=== PATIENT | male | born 1965 | race Caucasian/White ===

== ENCOUNTER 2021-03-29 07:41 | Outpatient (REF) | payer OTHER, SELFPAY ==
[2021-03-29 08:24] LABS: Hematocrit 41.8 % (42-52); Hemoglobin 13.7 g/dl (14.0-18.0); Mean Corpuscular HGB Conc 32.8 g/dl (31.0-36.0); Mean Corpuscular Hemoglobin 28.6 pg (27.0-33.0); Mean Corpuscular Volume 87.3 fL (80-98); Mean Platelet Volume 8.9 fL (9.4-12.4); Platelet Count 214 X10*3/uL (160-400); Red Blood Count 4.79 X10*6/uL (4.60-5.80); Red Cell Distribution Width 12.2 % (11.0-16.0); White Blood Count 6.1 X10*3/uL (4.8-10.8)
[2021-03-29 08:28] LABS: Glucose Urine UA NEG (NEG); Leukocyte Esterase Urine NEG (NEG); Nitrite Urine NEG (NEG); PH 5.5 (5.0-8.0); Specific Gravity - Urine 1.025 (1.005-1.025); Urine Blood NEG (NEG); Urine Ketones NEG (NEG); Urine Protein NEG (NEG-TRACE)
[2021-03-29 08:35] LABS: Appearance Urine CLEAR; Color Urine YELLOW
[2021-03-29 09:03] LABS: Alanine Aminotransferase 44 U/L (0-40); Albumin Level 4.2 g/dL (3.5-5.0); Alkaline Phosphatase 82 U/L (39-117); Anion Gap 12 (12-20); Aspartate Amino Transferase 25 U/L (5-37); Bilirubin Direct 0.3 mg/dL (0.0-0.5); Bilirubin Total 0.8 mg/dL (0.0-1.0); Blood Urea Nitrogen 17 mg/dL (9-16); Calcium 9.1 mg/dL (8.4-10.2); Carbon Dioxide 24 mmol/L (22-29); Chloride 108 mmol/L (96-108); Cholesterol 157 mg/dL; Estimated Glomerular Filt Rate > 60; Glucose Random 118 mg/dL (60-115); HDL Cholesterol 52 mg/dL; LDL Cholesterol Calculated 88 mg/dl; Potassium 4.2 mmol/L (3.3-5.1); Sodium 140 mmol/L (135-145); Total Protein 6.3 g/dL (6.5-8.0); Triglycerides 85 mg/dL
[2021-03-29 09:14] LABS: Thyroid Stimulating Hormone 0.75 uIU/mL (0.32-4.0)
[2021-04-01 18:16] LABS: Vitamin D 25-OH, D2 <4 ng/mL; Vitamin D 25-OH, D3 30 ng/mL; Vitamin D 25-OH, Total 30 ng/mL (30-100)
== END 2021-03-29 07:42 | disposition home or self-care (01) ==
LOC: HO.LAB 07:41
PROVIDERS: PCP Internal Medicine; Visit Provider Internal Medicine
DX: E78.00 Pure hypercholesterolemia, unspecified (principal)
CPT/HCPCS: 36415; 80048; 80061; 80076; 81003; 82306; 84443; 85027

== ENCOUNTER → 2021-04-18 08:54 | Outpatient (BNVA) | payer OTHER, SELFPAY | PROVIDERS: PCP Internal Medicine; Visit Provider Nurse Practitioner Family ==

== ENCOUNTER 2021-05-01 09:09 | Outpatient (REF) | payer OTHER, SELFPAY ==
--- NOTE | ~2021-05-01 | XR_ITS ---
EXAMINATION: XR WRIST, RIGHT CLINICAL INFORMATION: Right wrist pain. COMPARISON: 12/09/2019 TECHNIQUE: PA, lateral, and oblique views of the right wrist. FINDINGS: There is no evidence of acute fracture or dislocation of the right wrist. Soft tissue swelling is seen about the lateral aspect of the distal radius. Stable degenerative change is seen with spurring involving the 1st carpometacarpal joint. XR/XR wrist RT min 3V IMPRESSION: Stable degenerative change 1st carpometacarpal joint. Soft tissue swelling without evidence of bony abnormality distal right radius.
== END 2021-05-01 09:10 | disposition home or self-care (01) ==
LOC: HO.HOSX 09:09
PROVIDERS: Visit Provider Orthopaedic Surgery
DX: M65.4 Radial styloid tenosynovitis [de Quervain] (principal); M18.11 Unilateral primary osteoarthritis of first carpometacarpal joint, right hand; M65.351 Trigger finger, right little finger
CPT/HCPCS: 20550; 73110; J1100

== ENCOUNTER 2021-05-23 09:27 | Day surgery (SDC) | payer OTHER, SELFPAY ==
--- NOTE | 2021-05-22 10:22 | HO.ANESPROP2 ---
Documented by User: Aysha Suazo NP 05/22/21 10:23 HPI - Anesthesia Eval Consult details Narrative: 56yo M for Colonoscopy PMFSH Active Problems Active Problems: All Active Problems (Updated 05/19/21 @ 14:14 by Natalie Donohue, RN) Screening for colon cancer (Acute) Carpal tunnel syndrome (Acute) De Quervain's tenosynovitis, right (Acute) Arthritis of carpometacarpal (CMC) joint of right thumb (Acute) Trigger finger, right little finger (Acute) Gout (Acute) Hypercholesterolemia (Acute) Past Medical History Medical History (Updated 05/19/21 @ 14:14 by Natalie Donohue RN) Gout Hypercholesterolemia Iron deficiency anemia Mild asthma Family History Family History Mother Environmental allergies Hypertension Arthritis Father No problems noted. Surgical History Surgical History (Updated 05/23/21 @ 10:40 by Viry Mercer MD) H/O esophagogastroduodenoscopy History of appendectomy History of carpal tunnel surgery History of cholecystectomy History of right inguinal hernia repair Social History Social History Housing: House Alcohol intake: current Alcohol intake frequency: holidays/special occasions only Alcohol type: wine Patient Tobacco Use Status: Never used Tobacco Use of substances other than those prescribed or required for medical reasons: No Are you DNR?: No Advance Directives: No Advance Directives Information Provided: Yes service: No Current occupational status: employed 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 Allergies Allergy/AdvReac Type Severity Reaction Status Date / Time hazelnut Allergy Mild THROAT Verified 05/19/21 14:15 ITCHING Home Medications Medication Instructions Recorded Confirmed Last Taken Type aspirin 81 mg tablet,delayed 81 mg PO DAILY 04/18/21 05/19/21 Unknown History release (Adult Aspirin Regimen) albuterol sulfate 90 mcg/actuation 2 puff INHALATION Q4-6H PRN 05/19/21 05/19/21 Unknown History aerosol inhaler (ProAir HFA) Exam Exam Date and Time: May 22, 2021 1022 Pertinent Lab Results Pertinent Lab Results: Laboratory Tests 03/29/21 03/29/21 08:00 08:00 WBC 6.1 Hgb 13.7 L Hct 41.8 L Plt Count 214 Sodium 140 Potassium 4.2 Chloride 108 Carbon Dioxide 24 BUN 17 H Creatinine 0.83 Assessment and Plan Assessment Anesthesia Assessment: Chart Reviewed Documented by User: Viry Mercer MD 05/23/21 10:43 [facility] Past Medical History Medical History (Updated 05/19/21 @ 14:14 by Natalie Donohue, LUIS FERNANDO) Gout Hypercholesterolemia Iron deficiency anemia Mild asthma Family History Family History Mother Environmental allergies Hypertension Arthritis Father No problems noted. Family history of problems with anesthesia: No Surgical History Surgical History (Updated 05/23/21 @ 10:40 by Viry Mercer MD) H/O esophagogastroduodenoscopy History of appendectomy History of carpal tunnel surgery History of cholecystectomy History of right inguinal hernia repair History of Problems with Anesthesia: No Social History Social History Housing: House Alcohol intake: current Alcohol intake frequency: holidays/special occasions only Alcohol type: wine Patient Tobacco Use Status: Never used Tobacco Use of substances other than those prescribed or required for medical reasons: No Are you DNR?: No Advance Directives: No Advance Directives Information Provided: Yes service: No Current occupational status: employed 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 Allergies Allergy/AdvReac Type Severity Reaction Status Date / Time hazelnut Allergy Mild THROAT Verified 05/19/21 14:15 ITCHING Home Medications Medication Instructions Recorded Confirmed Last Taken Type aspirin 81 mg tablet,delayed 81 mg PO DAILY 04/18/21 05/19/21 Unknown History release (Adult Aspirin Regimen) albuterol sulfate 90 mcg/actuation 2 puff INHALATION Q4-6H PRN 05/19/21 05/19/21 Unknown History aerosol inhaler (ProAir HFA) Exam Height,Weight and Vital Signs: Height 5 ft 10 in Weight 107.955 kg Vital Signs Temp Pulse Resp BP Pulse Ox 05/23/21 09:37 97.3 F 94 16 137/90 H 97 Airway Mallampati Class: II TM Dist: >3cm Neck ROM: Full Heart: RRR Lungs: CTAB Assessment and Plan Assessment Anesthesia Assessment: Anesthesia Plan Discussed Final Anesthetic Review Family History of Problems with Anesthesia: No History of Problems with Anesthesia: No NPO: Yes ASA Class: II Final Preanesthetic Review: No Changes in Pt Med Stat, Meds/Allgs Chart Reviewed, Consent Obtained/Reviewed and Anes Risks/Benef Reviewed Patient Risk: Low Procedure Risk: Low Assessment/Block/Sedation in SS: Assess/Block/Sedation-SS Anesthetic Plan Anesthetic Plan: MAC: Disposition: Standard PACU
[2021-05-23 09:37] VITALS: BP 137/90; PULSE 94; RESP 16; TEMP 36.3; O2SAT 97; BMI 34.1
--- NOTE | 2021-05-23 09:44 | MHC.SHP ---
Pre-Procedural Eval Section A Date of Service: 05/23/21 The patient is an INPATIENT: No The History & Physical has been completed within 30 days and I have reviewed it.: No Section B Chief Complaint: Screening Details of Present Illness: Colon cancer screening Relevant Family History (Specify if Yes): No Relevant Social History: None Present Medications: see Short Stay Collaborative assessment Medical History: Significant History (Gout, elevated cholesterol) History of Previous Operations: Relevant previous surgery/procedure and date(s) (History of appendectomy History of carpal tunnel surgery History of cholecystectomy) Allergies: Allergies Allergy/AdvReac Type Severity Reaction Status Date / Time hazelnut Allergy Mild THROAT Verified 05/19/21 14:15 ITCHING Review of Systems Sugical H&P ROS: Negative: Constitution, Cardiovascular, Respiratory and Gastrointestinal Exam Surgical H&P Exam: Normal: Heart, Normal: Lungs, Normal: Extremities and Normal: Abdomen Plan Diagnosis/Plan: Unchanged I have reviewed the history and physical and performed a pertinent physical examination on my patient. No changes have occurred unless specified.
--- NOTE | 2021-05-23 09:47 | P.OP_ITS ---
Operative Note Operative Note Date of Service: 05/23/21 Narrative: Pre-op diagnosis:?Colon cancer screening Post-op diagnosis:?other (Colon polyp, diverticulosis, hemorrhoids) Procedure:? COLONOSCOPY TO CECUM WITH BIOPSIES Consent: Indications for the procedure and potential complications of bleeding, perforation, reaction to medications and missed diagnosis were discussed with the patient and informed consent was obtained. Instrument: Olympus PCF H 190 L variable stiffness pediatric colonoscope Monitoring: Vital signs and clinical assessment, intermittent blood pressure monitoring, continuous EKG monitoring, Pulse oximetry and Carbon Dioxide monitoring were done throughout the procedure. Colon withdrawl time was 22 minutes. Procedure: The patient was placed in the left lateral decubitis position and pre-procedure medications were administered. After a digital rectal examination of the ano-rectum, the video colonoscope was inserted into the rectum and advanced through the colon to the cecum. The colonoscope was slowly withdrawn in a retrograde panoramic fashion and the colon mucosa was carefully examined including a retroflexed view of the rectum. Findings and interventions are described below. Procedure Difficulty: Without difficulty Findings: Terminal Ileum: Not evaluated Cecum: A 4-5 mm sessile polyp in the cecum removed by a cold bx. Ascending Colon:? Normal Transverse Colon:? Normal Descending Colon:? Moderate diverticulosis Sigmoid Colon:? Moderate diverticulosis Rectum:? Normal Ano-rectum:? Moderate internal hemorrhoids Colon preparation:? Good? Impression and Post Procedure Diagnosis: Colonoscopy Findings: One small polyp removed. Random biopsies were obtained from the colon to check for microscopic colitis. Moderate diverticulosis seen in the left colon Moderate hemorrhoids on retroflexed exam. Plan: Await pathology results Patient has an appointment on 06/10/21 in the GI Clinic with ? Nohemy Solares FNP-MORGAN. Repeat Colonoscopy interval based on path results - in 5 years if polyps are adenomatous and 10 years if polyps are hyperplastic. Above findings were reviewed with the patient and colon polyps and diverticulosis handouts were given in the discharge area Surgeon:?Cami Kruger MD Anesthesia:?MAC (Rabia Tsai CRNA) Was an Multiskill Operator used for this Procedure?:?No Multiskill Operator:?Moon Glez Estimated blood loss (mL):?0 Pathology:?other (A. cecal polyp? C. random colon biopsies, R/O microscopic colitis Pre-operative diagnosis: : screening) Condition:?stable Disposition:?PACU
[2021-05-23] MEDS: Lactated Ringers 1,000 ML 100 ML IVCONT (09:58)
[2021-05-23 11:19] VITALS: BP 101/64; PULSE 84; RESP 16; TEMP 36.1; O2SAT 95
[2021-05-23 11:34] VITALS: BP 116/75; PULSE 80; RESP 18; TEMP 36.1; O2SAT 97
== END 2021-05-23 11:59 | disposition home or self-care (01) ==
PROVIDERS: PCP Internal Medicine; Visit Provider Internal Medicine Gastroenterology
PROC: 0DJD8ZZ Inspection of Lower Intestinal Tract, Via Natural or Artificial Opening Endoscopic (ICD-10-PCS; CPT 45378; principal; 2021-05-23 10:30)
DX: Z12.11 Encounter for screening for malignant neoplasm of colon (principal); D12.0 Benign neoplasm of cecum; K57.30 Diverticulosis of large intestine without perforation or abscess without bleeding; K64.8 Other hemorrhoids
CPT/HCPCS: 45380; 88305

== ENCOUNTER → 2021-06-18 12:42 | Outpatient (BNVA) | payer OTHER, SELFPAY | PROVIDERS: PCP Internal Medicine; Visit Provider Orthopaedic Surgery ==

== ENCOUNTER 2021-06-30 09:11 | Day surgery (SDC) | payer OTHER, SELFPAY ==
--- NOTE | 2021-06-30 09:43 | P.OP_ITS ---
Operative Note Operative Note Date of Service: 06/30/21 Narrative: Operative Note Preop diagnosis: 1. Right DeQuervain's tenosynovitis Postop diagnosis: 1. Right DeQuervain's tenosynovitis Procedure: 1. Right 1st dorsal compartment release 2. Right abductor pollicis longus tenosynovectomy Surgeon: Marine Cummings MD Anesthesia: local block using 1% lidocaine with epinephrine Findings: Thickened 1st dorsal compartment. Hypertrophic inflamed tenosynovium about the APL tendon EBL: Less than 5 mL Tourniquet time: None Specimens: APL Tenosynovium Complications: None Disposition: Brought to recovery room in stable condition Plan: Follow-up for 7-10 days for wound check and suture removal. Check histopathology and cultures. Indications: The patient is 56 years old, with right DeQuervain's tenosynovitis that has been unresponsive to nonoperative management. The risks and benefits of operative treatment including but not limited to risk of damage to blood vessels, nerves, tendons, infection, persistent pain, persistent symptoms, recurrence or possible need for additional surgery were discussed with the patient and the patient wishes to proceed with surgery. Procedure: Once consent was obtained a local block was performed in the preop area using a combination of 1% lidocaine with epinephrine. The patient was then brought back to the operating suite and placed on the operative table in supine position. A tourniquet was applied to the proximal aspect of the right upper extremity and the limb was prepped and draped in a standard surgical fashion. Once assured that we had a good block, a 1.5 cm longitudinal incision was made centered over the 1st dorsal compartment as it passed over the radial styloid of the wrist. The incision was made through the skin to the subcutaneous tissues using a #15 blade. Careful dissection was made down to the level of the 1st dorsal compartment using tenotomy scissors, with care being taken to protect the nearby branches of the superficial radial nerve. Once the 1st dorsal amalia rtment was exposed, A longitudinal incision was made in the 1st dorsal compartment 1st using a #15 blade, then using tenotomy scissors under direct visualization. The 1st dorsal compartment was noted to be thickened. He also had hypertrophic inflamed tenosynovium about the abductor pollicis longus tendon. I then performed a tenosynovectomy, by excising this inflamed tenosynovium using tenotomy scissors. This was placed on the back table and sent for pathology and cultures. Following our release and tenosynovectomy we saw smooth gliding abductor pollicis longus and extensor pollicis brevis tendons. Once satisfied with our 1st dorsal compartment release the wound was copiously irrigated with normal saline and hemostasis was obtained with a brief period of local pressure. The subcutaneous layer was closed with some 4-0 Vicryl suture, and the skin edges were reapproximated with some 5.0 nylon suture material. A sterile dressing was applied. The patient appears to have tolerated the procedure well and with no complications. All digits were well vascularized at the conclusion of the case.
[2021-06-30 10:03] VITALS: BMI 34.1
[2021-06-30 10:21] VITALS: BP 142/88; PULSE 93; RESP 16; TEMP 36.9; O2SAT 96
--- NOTE | 2021-06-30 10:34 | MHC.SHP ---
Pre-Procedural Eval Section A Date of Service: 06/30/21 The patient is an INPATIENT: No Changes since office visit: No Cold of Flu in the past 2 weeks, No New Medical Problems, No Changes in Medication and No Patient answered all questions The History & Physical has been completed within 30 days and I have reviewed it.: Yes Section B Chief Complaint: Radial Styloid Tenosynovitis Allergies: Allergies Allergy/AdvReac Type Severity Reaction Status Date / Time hazelnut Allergy Mild THROAT Verified 06/18/21 12:57 ITCHING Plan I have reviewed the history and physical and performed a pertinent physical examination on my patient. No changes have occurred unless specified.
[2021-06-30 12:03] VITALS: BP 125/76; PULSE 98; RESP 16; TEMP 36.1; O2SAT 96
== END 2021-06-30 12:20 | disposition home or self-care (01) ==
PROVIDERS: PCP Internal Medicine; Visit Provider Orthopaedic Surgery
PROC: (CPT 25118; principal; 2021-06-30 10:50)
DX: M65.4 Radial styloid tenosynovitis [de Quervain] (principal); M18.11 Unilateral primary osteoarthritis of first carpometacarpal joint, right hand; M10.9 Gout, unspecified; E78.00 Pure hypercholesterolemia, unspecified; D50.9 Iron deficiency anemia, unspecified; J45.909 Unspecified asthma, uncomplicated
CPT/HCPCS: 25118; 88304

== ENCOUNTER → 2021-07-15 08:51 | Outpatient (BNVA) | payer OTHER, SELFPAY | PROVIDERS: PCP Internal Medicine; Visit Provider Orthopaedic Surgery ==

== ENCOUNTER 2024-12-02 07:20 | Outpatient (REF) | payer BC, SELFPAY ==
--- OUTSIDE RECORDS SUMMARY | 2024-11-28 18:43 | XMS_ITS ---
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 Generated for Printi klever/Ignacia/eTransmitting on:?11/28/2024 06:42 PM EDT
--- OUTSIDE RECORDS SUMMARY | 2024-11-28 18:43 | XMS_ITS ---
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 Generated for Printi ng/Ignacia/eTransmitting on:?11/28/2024 06:42 PM EDT
--- OUTSIDE RECORDS SUMMARY | 2024-11-28 18:43 | XMS_ITS | Patient Health Record ---
Author Organization [facility] Address [address] [facility] [place] [address] Care Team Providers Care Clinical Assoc Name Role Phone Santos Blood MD Primary Care Provider Rosalie Cabrera Unavailable [phone] Allergies No Known Allergies Reason For Referral No Information Medications Medication SIG (Take, Route, Frequency, Duration) Notes Start Date End Date Status ASO Ankle/Foot Stablizing AFO As directed Wear Daily for as needed 11/13/2024 Active Ibuprofen 800 MG 1 tablet with food o r milk as needed Orally Three times a day for 30 days 11/13/2024 Active Physical Therapy . . . 2-3x/week for 3- 4 weeks 11/13/2024 Active Social History Tobacco Use: Social History Observation Description Date Details (start date - stop date) Never Smoker NA - NA Tobacco use other than smoking: Question Answer Notes Are you an other tobacco user? No Tobacco Control (Standard) Question Answer Notes Tobacco use: Nonsmoker Additional Findings: Tobacco non-user Current no nsmoker AUDIT-C (Standard) Question Answer Notes Did you have a drink containing alcohol in the p ast year? 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 and Flat foot [pes planus] (acquired), right foot M21.[address] [facility] [address] 07/26/2024 Rosalie Carson [facility] [address] 09/20/2024 Rosaliecornelio Carson [facility] [address] 10/23/2024 Rosalie Carson Assessments Encounter Date Diagnosis (ICD Code) Assessment Notes Treatment Notes Treatment Clinical Notes Section Notes 11/13/2024 Posterior tibial tendinitis, right leg (ICD-10 - M76.821) 11/13/2024 Pain in right foot (ICD-10 - M79.671) 11/13/2024 Hypertrophy of bone, right ankle and foot (ICD-10 - M89.371) 11/13/2024 Flat foot [pes planus] (acquired), right foot (ICD-10 - M21.41) Plan Of Treatment Pending Test Test Name Order Date X ray : Foot, right 3V 11/13/2024 Next Appt Details Provider Name:Rosalie Lugo Josefina lugo, 01/25/2025 04:00:00 PM, [address] [place], [address], Insurance Providers Payer Name Payer Address Payer Phone Subscriber Number Group Number Insured Name Patient Relationship to Insured Coverage Start Date Coverage End Date [facility] [employer] [address] [place] [address] [id number] Devante Caruso Self - patient is the insured Medical (General) History Medical History History ICD Code Arthritis Back,Hip,and Knee pain Gall bladder problems Gout PVD GERD sinusitis Chicken pox Surgical History Surgery Date(Month/Year) Gall bladder removal 2003 hernia appendectomy carpal tunnel surgery tendon removal
--- OUTSIDE RECORDS SUMMARY | 2024-11-28 18:43 | XMS_ITS ---
[facility] Organization [facility] Gabino geoff Mcfaddin Address [address] [place] [address] Care Team Providers Care Service Unit Operator Name Role Phone Santos Blood MD Primary Care Provider Rosalie Cabrera Unavailable [phone] Allergies No Known Allergies REASON FOR VISIT Foot pain Medications Medication SIG (Take, Route, Frequency, Duration) [...] No Points 0 Interpretation Negative Vital Signs Height 5ft 10in in 11/13/2024 Weight 254 lbs 11/13/2024 BMI 36.44 kg/m2 11/13/2024 Blood pressure systolic 143 mm Hg 11/14/19 25 Blood pressure diastolic 101 mm Hg 025 Heart Rate 96 /min 11/13/2024 Encounters Encounter Location Date Provider [facility] [address] 11/13/2024 Rosalie Carson Pain in right foot M79.671 ; Posterior tibial tendinitis, right leg M76.821 ; Hypertrophy of bone, right ankle and foot M89.371 and Flat foot [pes planus] (acquired), right foot M21.41 Assessments Encounter Date Diagnosis (ICD Code) Assessment Notes Treatment Notes Treatment Clinical Notes Section Notes 11/13/2024 Pain in right foot (ICD-10 - M79.671) 11/13/2024 Posterior tibial tendinitis, right leg (ICD-10 - M76.821) 11/13/2024 Hypertrophy of bone, right ankle and foot (ICD-10 - M89.371) 11/13/2024 Flat foot [pes planus] (acquired), right foot (ICD-10 - M21.41) Plan Of Treatment Medication Medication Name Sig Start Date Stop Date Notes ASO Ankle/Foot Stablizing AFO As directe d Wear Daily for as needed 11/13/2024 Ibuprofen 800 MG 1 tablet with food o r milk as needed Orally Three times a day for 30 days 11/13/2024 Physical Therapy . . . 2-3x/week for 3-4 weeks 11/13/2024 Pending Test Test Name Order Date X ray : Foot, right 3V 11/13/2024 Next Appt Details Follow Up: 2 Months, Reason: Provider Name:Rosalie lugo, 01/25/2025 04:00:00 PM, [address] [place], [address], Progress Notes * Amee CARUSOOB:1965 (59 yo M)Acc No.[id number]:11/13/2024 Progress Notes Patient:?Devante CARUSO Provider:?Rosalie Carson DPM :1965???Age:59 Y???Sex:Male Hussein e:11/13/2024 Address:[address] [place] [address] [facility] Pcp:Santos Blood MD Subjective: * Chief Complaints: * ???Foot pain * HPI: ???Foot Pain:?Nature:?aching, pulling, throbbing, weakness.?Location:?RIGHT, Inside, Midfoot.?Duration:?several months.?Onset:?, gradual, denies trauma.?Course:?worse.?Aggravated:?any pressure, standing, walking, job/occupation.?Treatments:?rest/alter normal daily activity, change in shoes, innersoles.? * ROS:?General/Constitutional:?Nausea?denies.?Vomiting?denies.?Hunger Thirst?denies.?Loss appetite?denies.?Chills?denies.?Fatigue?denies.?Fever?denies.?Night Sweats?denies.?Unexplained weight loss?denies.?Unexplained weight gain?denies.?HEENTM:?Dentures?denies.?Dizziness?denies.?Glasses/contacts?denies.?Retinopathy?de nies.?Blurred/double vision?denies.?TMJ?denies.?Discharge/drainage?denies.?Implants?denies.?Sore throat?denies.?Dental implants?denies.?Hard of hearing ?denies.?Difficulty chewing/swallowing/speaking?denies.?Nose bleeds?denies.?Sore mouth?denies.?Respiratory:?On Oxygen?denies.?Pneumonia/pleurisy?denies.?Bronchitis?denies.?Emphysema?denies.?C oughing?denies.?Cough blood?denies.?Shortness of breath?denies.?Wheezing?denies.?Cardiovascular:?Pacemaker?denies.?MVP?denies.?WPW?denies.?CHF?denies.?Heart attack?denies.?Septal defect?denies.?Rapid beat?denies.?Chest pain ?denies.?Atrial Fib.?denies.?Murmur/Palpitations?denies.?Gastrointestinal:?Hemorrhoids?denies.?Stomach/Abdominal pain?denies.?Dark blood stool?denies.?Irritable bowel ?denies.?Constipation?denies.?Diarrhea?denies.?Hematology:?Swelling?denies.?Clots?denies.?Varicose Veins?denies.?Bruising?denies.?Bleeding problem?denies.?Genitourinary:?Blood urine?denies.?Frequent/Painfu/urination/bladder control?denies.?Kidney stones?denies.?Infection (UTI)?denies.?Nephropathy?denies.?sex trans dis (STD)?denies.?Prostate?denies.?Musculoskeletal:?Hammertoes?admits.?Bunions?denies.?Back Pain?denies.?Muscle Cramps/ Resting?denies.?Muscle cramps / walking?denies.?Generalized aches and pains?admits.?Weakness?denies.?Integ.:?Rodriguez?denies.?Scars?denies.?Corns/calluses?denies.?Ingrown nails?denies.?Painful nails?denies.?Open Sores?denies.?Rashes?denies.?Neurologic:?Difficulty sleeping?denies.?Brain disorder?denies.?Numbness?denies.?Balance trouble?denies.?Confusion?denies.?Fainting/blackouts?denies.?Tingling?denies.?Tr emors?denies.? * Medical History:? * Surgical History:?Gall bladd er removal 2004hernia appendectomy carpal tunnel surgery tendon removal * Hospitalization/Major Diagno stic Procedure:?Denies Past Hospitalization * Family History:?Mother: henry roa, diagnosed with Unspecified essential hypertension.?Father: , diagnosed with Unspecified cerebral artery occlusion with cerebral infarction.? * Social History:?Tobacco Use:?Tobacco use other than smoking?Are you an other tobacco user??No ?Tobacco Control (Standard)?Tobacco use:?Nonsmoker ?Additional Findings: Tobacco non-user?Current nonsmoker ???Drugs/Alcohol:?Drugs?Have you used drugs other than those for medical reasons in the past 12 months??No ???Miscellaneous:?Caffeine: yes, 1-2 cups per day. ?Children: yes, 2. ?Exercise: yes, walking. ?Marital status: . ?Occupation: [employer]. ???Drug/Alcohol:?AUDIT-C (Standard)?Did you have a drink containing alcohol in the past year??No ?Points?0 ?Interpretation?Negative * Medications:?None * Allergies:?N.K.D.A.yes[Aller gies Verified] Objective: * Vitals:?Ht: 5ft 10in, Wt:254 , BMI:36.44, Shoe size: 11.5/12, BP:143/101mm Hg, HR:96/min, Ht-cm: 177.8 cm, Wt-k.21 kg. * Examination: ???General Examination: ?GENERAL APPEARANCE:?Reveals a pleasant, alert, well-nourished, well- developed, well hydrated individual, who demonstrates proper attention to hygiene/body habitus, and is in no acute distress, Pt serves as own?historian for office visit today.?ORIENTED:?person, place, and time.?Neurological: ?SENSORY:?Neurological exam reveals intact sensorium, pain sensation normal, vibration sensation intact, pinprick sensation is normal in the lower extremities, Pt denies, anesthesia, burning, paresthesia, tingling, B/L.?Vascular: ?DP PULSES (B):?3/4, B/L.?PT PULSES (B):?3/4, B/L.?CAPILLARY FILL TIME:?immediate, all digits, B/L.?TROPHIC CONDITION-TEXTURE/ELASTICITY/TURGOR/HAIR GROWTH (B):?normal, B/L.?TEMPERTURE GRADIENT (C):?warm to cool, proximal to distal, B/L.?PIGMENTATION:?normal, B/L.?EDEMA (C):?absent, B/L.?Dermatologic: ?SKIN FINDINGS:?Skin exam reveals normal texture, elasticity, and turgor. There are no masses. The interspaces are clear.?Orthopedic: ?MUSCLE STRENGTH:?5/5 all groups in a symmetrical fashion , B/L.?GAIT ABNORMALITY:?Pronated, abducted angle and base of gate, B/L.?FOOT MORPHOLOGY:?Rigid medial/plantar protrusion of Midfoot at area of Navicular tuberosity, RIGHT, Pes Planus structure, Semi-rigid, B/L, Decreased Ankle joint dorsiflexion ROM, knee extended, Decreased Ankle joint dorsiflexion ROM, knee flexed.?TENDONITIS:? Pain on palpation, inflammation, and fusiform swelling to,Posterior Tibial Tendon, RIGHT, insertion,Pain with Range of Motion.?X-Rays - IMAGING REPORT: ?Clinical Indication(s):? Evaluate for Fracture.?Views:?3 views of Foot, RIGHT, AP, LAT, MO??Taken by trained?Podiatric Blueprinting Machine Operator (?YUMI ).?Findings:?mild generalized decrease in bone density, navicular/cuneiform plantar subluxation with anterior cyma line, hypertrophied navicular tuberosity, no coalitions identified.?Foot structure:?reveals excess pronation with, anterior break in cyme line, increased talar declination, decreased calcaneal inclination.?Fracture:?Negative fractures identified.?Accessory ossicles:?Os Tibiale Externum.? * Physical Examination:?L1902 ASO-AFO:?Application of ankle foot orthosis, ankle gauntlet, prefabricated, including fitting and adjustment:?Large, Right.? Assessment: * Assessment: 1.?Posterior tibial tendinit is, right leg - M76.821 (Primary)???Specify :Acute problem, Complicated w/ Multiple Tx Options(4),Dx New problem, Prognosis Uncertain (4)???2.?Pain in right foot - M79.671???3.?Hypertrophy of bone, right ankle and foot - M89.371???4.?Flat foot [pes planus] (acquired), right foot - M21.41??? Plan: * Treatment: 2.?Pain in right foot?Imaging: X ray : Foot, right 3V * Procedure Codes:?03584 X-RAY EXAM OF RIGHT FOOT 3V, Modifiers: 26 , [id number] AFO ANK GAUNTLT PREFAB W FIT ADJ * Preventive Medicine:? ??Counseling:?Discussion:?-04: Office or other outpatient visit for the evaluation and management of a new patient, which required a medically appropriate history and/or examination and MODERATE level of DECISION MAKING for: 1 OR MORE CHRONIC PROBLEM(S) THATS WORSENING, 2 STABLE CHRONIC PROBLEMS, A NEWLY DIAGNOSED PROBLEM WITH UNCERTAIN PROGNOSIS, AN ACUTE COMPLICATED INJURY WITH MULTIPLE TREATMENT OPTIONS, OR AN ACUTE PROBLEM WITH ACCOMPANYING SYSTEMIC SYMPTOMS, THAT POSE(S) A MODERATE RISK OF MORBIDITY. THIS CONDITION MAY ALSO INCLUDE RX DRUG MANAGEMENT, OR A DECISON FOR MINOR SURGERY. The visit on the day of the encounter encompassed interpreting the data and educating the patient as to the nature of their condition, treatment options available according to their individual PMH, meds, allergies, and overall health/living conditions, as well as any potential risks or complications that may occur from a failure to adhere to, and participate in, the recommended course of therapy. The discussion included a complete verbal, and/or written explanation of the examination results, any x-rays taken, the proposed diagnosis, and outline of the treatment plan. A schedule for future care needs was also explained. The patient verbalized an understanding of the instructions at this time and agreed to be an active participant in their treatment. If the patient should think of any questions or concerns after the visit, I have encouraged the patient to call the office.?BioMech.:?I discussed the Pts foot biomechanics with them and how it relates to their problem.?Myositis/Tendonitis:?TENDONITIS: I explained to the patient the possible etiologies of their Tendonitis, including foot type/shoegear/activity level/exercise routine and the risks/benefits of the different treatment options for their pain including: No treatment at all, Rest, Ice, Oral Prednisone, NSAIDs(only if well tolerated after meals), New/supportive Shoegear, Strappings and Tapings, Stretching exercises, Deep Tissue Massage, Heel cups/cushions, Arch support/shoe inserts, Custom orthoses, Foot/Ankle AFO Bracing, Cast boot with crutches/cane/or walker for assisted ambulation, Topical analgesics including Aspercream/Voltaren gel, Physical Therapy, EPAT/ESWT, and Interfil injection therapy. Tendon surgical procedures including reefing and/or transfers were also detailed should either one become necessary through failure of conservative treatment. The advantages and disadvantages of each option were discussed and the patients questions re: shoegear, the difference between custom vs prefabricated inserts, activity level, PO vs Topical medications (and their respective potential complications/drug interactions/side effects), consistency in home treatment regimens for optimal success, as well as the potential benefits and possible complications of reconstructive surgery (includeing, but not limited to failure, prolongued/delayed healing, infection, weakness, persistant pain) were answered to their verbally confirmed satisfaction.?Orthotics:?I explained to the patient the benefits of OT use. I explained that orthoses are medically necessary to decrease the foot pain through proper mechanical control, support of their foot, pt defers orthotics, AFO - I explained to the patient the benefits of AFO use. Recommend AFO Lower Extremity Bracing to accomodate the patients deformity and result in pain relief without surgery.?P.R.I.C.E.:?The patient was counseled on the use of P.R.I.C.E. and NSAIDS (if well tolerated) to aid in the recovery from their painful condition, Recommended Topical analgesics including Aspercream/Biofreeze/Voltaren gel as directed.?Physical Therapy:?Discussed the potential short and detention benefits of physical therapy including pain relief, improved function for activity of daily life, return to exercise, increased quality of life. We discussed the usual/customary PT treatment schedule of 2-3 times per week for 4 weeks to as much as 12 weeks depending on insurance approval/coverage. We discussed various PT treatment modalities including, but not limited to, gate training, muscular stabilization, stretching, deep tissue therapeutic massage, ultrasound, TENS, iontophoresis, fluidotherapy, laser therapy, hydrotherapy, contrast ice/heat bath, and passive as well as active ROM exercises. Questions re: PT including visit amounts, rates of success, and goals were answered to the patient's satisfaction. The patient verbally confirmed the medical necessity and use of PT therapy treatment for their MSK condition.?Shoe Gear Counseling:?The patient and I reviewed the types of shoes they should be wearing. My recommendation included obtaining a well-fitted shoe with a good supportive, non-foldable nor twistable sole, plenty of toe/room for the forefoot, and proper arch support. Based on todays examination, I recommended the patient look for new shoes, by having their feet professionally measured. We discussed that generally the best time of the day for a shoe fitting is the afternoon. Different shoes types and brands to best match the patients occupation and vocation were discussed. Specific brand selection will be up to the patient, their individual foot condition/deformities, and fit. The patient and I reviewed the standard new shoe break in period by wearing them for a few hours a day while checking for redness or sores as wear time is increased. The patient verbally confirmed to understanding the information discussed.?X-rays:?Discussed and reviewed the X-rays with the patient. We discussed how the findings relate to the patients symptoms/complaints. Answered any and all questions..? ??Screening/Special Tests:?Fall Risk?Screening:?No falls in the past year ?FALLS: Screening for Future Fall Risk?Have you had any falls with injury in the past year??No * Follow Up:?2 Months * Images: * Sign off status: Completed true * Provider:?Rosalie Carson, DPHilary Date:? Generated for Printi ng/Faericag/eTransmitting on:?11/28/2024 06:43 PM EDT History and Physical Notes * HPI (History of Present Illness) Category Sub-Category Detail Notes Category Not es Foot Pain Nature: aching, pulling, throbbing, weakness Location: RIGHT, Inside, Midfo ot Duration: several months Onset: , gradual, denies tr auma Course: worse Aggravated: any pressure, standi ng, walking, job/occupation Treatments: rest/alter normal da nafisa activity, change in shoes, innersoles Physical Examination Category Sub-Category Detail Notes Section Note s L1902 ASO-AFO Application of ankle foot orthosis, ankle gauntlet, prefabricated, including fitting and adjustment: Large, Right Examination Category Sub-Category Detail Notes Category Not es Neurological SENSORY: Neurological exa m reveals intact sensorium, pain sensation normal, vibration sensation intact, pinprick sensation is normal in the lower extremities, Pt denies, anesthesia, burning, paresthesia, tingling, B/L Dermatologic SKIN FINDINGS: Skin exam reveal s normal texture, elasticity, and turgor. There are no masses. The interspaces are clear Orthopedic GAIT ABNORMALITY: Pronated, abdu cted angle and base of gate, B/L FOOT MORPHOLOGY: Rigid medial/plantar protrusion of Midfoot at area of Navicular tuberosity, RIGHT, Pes Planus structure, Semi-rigid, B/L, Decreased Ankle joint dorsiflexion ROM, knee extended, Decreased Ankle joint dorsiflexion ROM, knee flexed TENDONITIS: Pain on palpation, i nflammation, and fusiform swelling to,Posterior Tibial Tendon, RIGHT, insertion,Pain with Range of Motion MUSCLE STRENGTH: 5/5 all groups in a symmetrical fashion , B/L General Examination GENERAL APPEARANCE: Reveals a pleasant, alert, well- nourished, well-developed, well hydrated individual, who demonstrates proper attention to hygiene/body habitus, and is in no acute distress, Pt serves as own historian for office visit today ORIENTED: person, place, and t santi Vascular DP PULSES (B): 3/4, B/L PT PULSES (B): 3/4, B/L CAPILLARY FILL TIME: immediate, all digi ts, B/L TEMPERTURE GRADIENT (C): warm to cool, p roximal to distal, B/L TROPHIC CONDITION-TEXTURE/ELASTICITY/TURGOR/HAIR GROWTH (B): normal, B/L EDEMA (C): absent, B/L PIGMENTATION: normal, B/L X-Rays - IMAGING REPORT Findings: mild gen eralized decrease in bone density, navicular/cuneiform plantar subluxation with anterior cyma line, hypertrophied navicular tuberosity, no coalitions identified Fracture: Negative fractures i dentified Accessory ossicles: Os Tibiale Externum Foot structure: reveals excess prona tion with, anterior break in cyme line, increased talar declination, decreased calcaneal inclination Views: 3 views of Foot, RIG HT, AP, LAT, MO Taken by trained Podiatric Blueprinting Machine Operator ( MB ) Clinical Indication(s): Evaluate for Fra cture
--- OUTSIDE RECORDS SUMMARY | 2024-12-02 07:23 | XMS_ITS | Patient Health Record ---
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 and Flat foot [pes planus] (acquired), right foot M21.[address] [facility] [address] 07/26/2024 Rosalie Carson [facility] [address] 09/20/2024 Rosaliecornelio Carson [facility] [address] 10/23/2024 Rosalie Carson Assessments Encounter Date Diagnosis [...] Lugo Josefina lugo, 01/25/2025 04:00:00 PM, [address] [place], [address], Insurance Providers Payer Name Payer Address Payer Phone Subscriber Number Group Number Insured Name Patient Relationship to Insured Coverage Start Date Coverage End Date [facility] [employer] [address] [place] [address] [id number] Devante Caruso Self - patient is the insured Medical (General) History Medical History History ICD Code Arthritis Back,Hip,and Knee pain Gall bladder problems Gout PVD GERD sinusitis Chicken pox Surgical History Surgery Date(Month/Year) Gall bladder removal 2003 hernia appendectomy carpal tunnel surgery tendon removal
--- OUTSIDE RECORDS SUMMARY | 2024-12-02 07:23 | XMS_ITS ---
Author Organization [facility] Gabino geoff Haslett Address [address] [place] [address] Care Team Providers Care Is Consultant Name Role Phone Santos Blood MD Primary Care Provider Rosalie Cabrera Unavailable [phone] Allergies No Known Allergies REASON FOR VISIT [...] No Points 0 Interpretation Negative Vital Signs Blood pressure systolic 143 mm Hg 11/14/19 25 Blood pressure diastolic 101 mm Hg 025 Heart Rate 96 /min 11/13/2024 Height 5ft 10in in 11/13/2024 Weight 254 lbs 11/13/2024 BMI 36.44 kg/m2 11/13/2024 Encounters Encounter Location Date Provider Diagnosis [facility] [address] 11/13/2024 Rosalie Carson Pain in right foot [...] Provider Name:Rosalie lugo, 01/25/2025 04:00:00 PM, [address] [place], [address], Progress Notes * Amee CARUSOOB:1965 (59 yo M)Acc No.[id number]:11/13/2024 Progress Notes Patient:?Devante CARUSO Provider:?Rosalie Carson DPM :1965???Age:59 Y???Sex:Male Hussein e:11/13/2024 Address:[address] [place] [address] [facility] Pcp:Santos Blood MD Subjective: * Chief Complaints: [...] ?Exercise: yes, walking. ?Marital status: . 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 ???Drug/Alcohol:?AUDIT-C (Standard)?Did you have a drink containing [...] Foot, RIGHT, AP, LAT, MO??Taken by trained?Podiatric Dairy Quality Assurance Officer (?YUMI ).?Findings:?mild generalized decrease in bone density, [...] ray : Foot, right 3V * Procedure Codes:?77753 X-RAY EXAM OF RIGHT FOOT 3V, Modifiers: 26 , [id number] AFO ANK GAUNTLT PREFAB W FIT ADJ [...] as directed.?Physical Therapy:?Discussed the potential short and senior living benefits of physical therapy including pain relief, [...] Carson, DPHilary Date:? Generated for Printi ng/Faericag/eTransmitting on:?12/02/2024 07:22 AM EDT History and Physical Notes * HPI [...] AP, LAT, MO Taken by trained Podiatric Dairy Quality Assurance Officer ( MB ) Clinical Indication(s): Evaluate for Fra cture
--- OUTSIDE RECORDS SUMMARY | 2024-12-02 07:23 | XMS_ITS ---
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 Generated for Printi klever/Ignacia/eTransmitting on:?12/02/2024 07:22 AM EDT
--- OUTSIDE RECORDS SUMMARY | 2024-12-02 07:23 | XMS_ITS ---
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 Generated for Printi klever/Ignacia/eTransmitting on:?12/02/2024 07:22 AM EDT
[2024-12-02 07:36] LABS: MANUAL DIFF FLAG NO
[2024-12-02 08:40] LABS: Basophils Percent Auto 0.6 % (0-2); Eosinophils Absolute Auto 0.3 X10*3/uL (0.0-0.4); Eosinophils Percent Auto 4.8 % (0-4); Hematocrit 40.4 % (42.0-52.0); Hemoglobin 13.7 g/dl (14.0-18.0); Imm Gran Abs Auto 0.02 X10*3/uL (0.00-0.03); Imm Gran Pct Auto 0.3 % (0.0-0.4); Lymphocytes Absolute Auto 1.8 X10*3/uL (1.2-4.9); Lymphocytes Percent Auto 29.3 % (20-40); Mean Corpuscular HGB Conc 33.9 g/dl (31.0-36.0); Mean Corpuscular Hemoglobin 29.1 pg (27.0-33.0); Mean Platelet Volume 9.2 fL (9.4-12.4); Monocytes Absolute Auto 0.5 X10*3/uL (0.1-1.2); Monocytes Percent Auto 7.8 % (2-11); Neutrophils Absolute Auto 3.6 x10*3/uL (2.0-8.3); Neutrophils Percent Auto 57.2 % (45-73); Platelet Count 205 X10*3/uL (160-400); Red Cell Distribution Width 12.2 % (11.0-16.0); White Blood Count 6.3 X10*3/uL (4.8-10.8)
[2024-12-02 08:48] LABS: Estimated Average Glucose 140 mg/dL; Hemoglobin A1c % 6.5 % (<6.0); Total Hemoglobin (HGBA1C) 3605.1308 umol/L
[2024-12-02 09:34] LABS: Alanine Aminotransferase 44 U/L (0-40); Albumin Level 4.2 g/dL (3.5-5.0); Alkaline Phosphatase 80 U/L (39-117); Anion Gap 12 (12-20); Aspartate Amino Transferase 26 U/L (5-37); Bilirubin Total 0.9 mg/dL (0.0-1.0); Blood Urea Nitrogen 21 mg/dL (9-16); Calcium 8.8 mg/dL (8.4-10.2); Carbon Dioxide 27 mmol/L (22-29); Chloride 106 mmol/L (96-108); Cholesterol 160 mg/dL (<200); Estimated Glomerular Filt Rate > 60; Glucose Random 115 mg/dL (60-115); HDL Cholesterol 60 mg/dL (>40); LDL Cholesterol Calculated 89 mg/dL (<100); Potassium 4.1 mmol/L (3.3-5.1); Sodium 141 mmol/L (135-145); Total Protein 6.7 g/dL (6.5-8.0); Triglycerides 55 mg/dL (<150); Uric Acid 9.2 mg/dL (3.4-7.0)
[2024-12-02 09:53] LABS: Prostate Specific Antigen Scr 0.99 ng/mL (<0.05-4.0)
== END 2024-12-02 07:21 | disposition home or self-care (01) ==
LOC: HO.LAB 07:20
PROVIDERS: PCP Internal Medicine; Visit Provider Internal Medicine
DX: Z00.00 Encounter for general adult medical examination without abnormal findings (principal); Z12.5 Encounter for screening for malignant neoplasm of prostate; Z13.1 Encounter for screening for diabetes mellitus
CPT/HCPCS: 36415; 80053; 80061; 83036; 84153; 84550; 85025

== ENCOUNTER 2025-01-26 08:43 | Outpatient (AMB) | payer BC, SELFPAY ==
--- OUTSIDE RECORDS SUMMARY | 2025-01-26 08:45 | XMS_ITS | Patient Health Record ---
Author Organization [facility] Gabino tellez [place] Address [address] [facility] [place] [address] Care Team Providers Care Loan Assistant Name Role Phone Santos Blood MD Primary Care Provider Rosalie Cabrera Unavailable [phone] Allergies No Known Allergies Reason For Referral [...] 11/13/2024 Encounters Encounter Location Date Provider Diagnosis [facility] [address] 11/13/2024 Rosalie Carson Pain in right foot M79.671 ; Posterior tibial tendinitis, right leg M76.821 ; Hypertrophy of bone, right ankle and foot M89.371 and Flat foot [pes planus] (acquired), right foot M21.[address] [facility] [address] 07/26/2024 Rosalie Carson [facility] [address] [address] 09/20/2024 [facility] [address] [address] [facility]/23[facility]20[facility] [address] 01/24/2025 Rosaile Carson Assessments Encounter Date Diagnosis (ICD Code) [...] X ray : Foot, right 3V 11/13/2024 Insurance Providers Payer Name Payer Address Payer Phone Subscriber Number Group Number Insured Name Patient Relationship to Insured Coverage Start Date Coverage End Date [facility] [address] [place] [address] [id number] Devante Caruso Self - patient is the insured Medical (General) History Medical History History ICD Code Arthritis Back,Hip,and Knee pain Gall bladder problems Gout PVD GERD sinusitis Chicken pox Surgical History Surgery Date(Month/Year) Gall bladder removal 2003 hernia appendectomy carpal tunnel surgery tendon removal
--- NOTE | 2025-01-26 09:00 | MHC.OFFVIS ---
Vital Signs 01/26/25 09:01 Height 5 ft 10 in Weight 256 lb BMI 36.7 BP 138/90 H Blood Pressure Location Lt brachial Position Sitting Pulse 94 Pulse Source Pulse Oximeter Pulse Oximetry (%) 98 Oxygen Delivery Method Room Air Intake Visit Reasons: E-ROAD [employer]DU[employer]: Snoring Intake Note: Patient presents ROAD [employer] Snoring. Some symptoms of RAMIRO with daytime sleepiness, fatigue, falling sleep in front of TV after work. Allergies hazelnut Allergy (Mild, Verified 01/26/25 09:05) THROAT ITCHING HPI Comments Details: 59 year old male referred to us for sleep evaluation by his pcp Dr. Santos Blood. RAMIRO symptoms fatigue, he falls asleep in front of the tv after work daily and he has a hard time staying asleep at night. He goes to bed at 10pm and gets up at 5am, 1-2 bathroom breaks and his c/o his loud snoring and apneas. He tried the nose strips but it did not help him. Sleep study more than years ago and they never followed up for results. He has jerking movements in bilaterally in legs r>l, at night for 3 years. He gets morning headaches and congestion due to sinus, center of the forehead, he tried using flonase and nasal saline. Denies RLS symptoms, has the urge to move his legs at night to get comfortable, but it never wakes him up. Gets cortisone shots in the knees. Gout in l toe improves Allopurinol. He also has anemia, HLD, and gout managed with allopurinol prn, bp is elevated today 138/90, on aspirin today. Diet, is good. Memory is stable. Mood is average. He is motivated to lose weight on a diet. [facility] Medical History Iron deficiency anemia Mild asthma Hypercholesterolemia Gout Surgical History History of carpal tunnel surgery of right wrist H/O esophagogastroduodenoscopy History of right inguinal hernia repair History of appendectomy History of cholecystectomy History of carpal tunnel surgery Family History Mother Environmental allergies Hypertension Arthritis Father No problems noted. 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 /[employer] Cognitive needs: No Hearing needs: No Vision needs: No Physical Exam Vital Signs: Last Vital Signs Pulse 94 01/26/25 09:01 BP 138/90 H 01/26/25 09:01 Pulse Ox 98 01/26/25 09:01 Oxygen Delivery Method Room Air 01/26/25 09:01 BMI result Body Mass Index 36.7 Const General: cooperative, comfortable and no acute distress Nutritional Appearance: average body habitus Orientation/consciousness: patient oriented x3 HEENT Face and sinus: Yes normal facial exam and Yes face symmetric Teeth and gingiva: other (mallampti 4) Eyes Pupils: Equal, round and reactive pupils present Resp Effort & Inspection: normal respiratory effort and able to speak in complete sentences Neuro Other: abnormal movements at night Jerking of bilateral legs. General: patient oriented x3 and moves all extremities Cranial nerves: Yes Equal, round and reactive pupils present, Yes Normal accommodation reflex present, Yes Normal facial strength present, Yes Midline tongue present, Yes Ability to bilaterally rotate head present and Yes Ability to bilaterally elevate shoulders present Cognition (Neuro): normal cognition Gait exam (Neuro): Normal gait present Motor exam (neuro): 5/5 motor strength present throughout and Normal motor muscle tone present throughout Coordination: [id number] test normal Psych Appearance: grossly normal Speech and movement: Normal speech and movement present Thought process: Normal thought process present Thought content: Normal thought content present Results Reviewed Results Reviewed: labs reviewed with patient with in normal limits. Assessment & Plan Assessment & Plan (1) Excessive daytime sleepiness: Code(s): G47.19 - Other hypersomnia Category: Medical (2) Twitching: Code(s): R25.3 - Fasciculation Category: Medical Plan RAMIRO HST to evaluate sleep apnea and snoring. Labs to r/o fatigue and reasons for twitching. BP is elevated today, white coat? monitor at home. The number one modifiable risk factor of cv events is good bp management. Orders: Orders RT home sleep study Today G47.19 - Other hypersomnia Vitamin B12 and Folate Today G47.19 - Other hypersomnia Methylmalonic Acid Today G47.19 - Other hypersomnia, G47.9 - Sleep disorder, unspecified, R53.83 - Other fatigue Homocysteine Today G47.19 - Other hypersomnia, G47.9 - Sleep disorder, unspecified, R53.83 - Other fatigue Ferritin Today G47.19 - Other hypersomnia Vitamin D 25-OH Total Today G47.19 - Other hypersomnia TSH reflex Free T4 Today G47.19 - Other hypersomnia Patient Instructions: Sleep Hygiene provided: set a scheduled bedtime and wake time to help regulate the circadian rhythm and balance the release of pituitary hormones. Sleep in a dark room, temperatures below 68 degrees, and no devices n bed. Limit caffeinated products 6 hours prior to bed, and limit fluids 2-4 hours prior to bed. Gentle night yoga, diffusing essential oils, and playing soft music can be relaxing. Coding Level of Care Code New Pt Level 4 (80403) Diagnoses Excessive daytime sleepiness G47.19 Twitching R25.3 Time Spent (min) 30 Comment Evaluation Sleep Questionnaire Difficulty falling asleep: No Difficulty staying asleep?: Yes Number of arousals: 1-2 Snoring: Yes Witnessed apneas: Yes Gasping arousals: No Nocturia: No GERD: No Vivid dreams: No Acting out dreams: No Abnormal behavior in sleep: No Abnormal movements in sleep: No Morning headaches: Yes Excessive daytime sleepiness: Yes Daytime naps: Yes Restless legs: No Hallucinations: No Sleep paralysis: No Drop attacks: No Sleep Study: No CPAP: No
[2025-01-26 09:01] VITALS: BP 138/90; PULSE 94; O2SAT 98; BMI 36.7
== END 2025-01-26 09:43 | disposition home or self-care (01) ==
LOC: HO.HSMS 08:43
PROVIDERS: PCP Internal Medicine; Visit Provider Physician Assistant Medical
DX: G47.19 Other hypersomnia (principal); R25.3 Fasciculation
CPT/HCPCS: 99204

== ENCOUNTER → 2025-01-26 08:43 | Outpatient (BNVA) | payer BC, SELFPAY | PROVIDERS: PCP Internal Medicine; Visit Provider Physician Assistant Medical ==

== ENCOUNTER → 2025-06-14 15:44 | Outpatient (REF) | payer BC, SELFPAY ==
--- OUTSIDE RECORDS SUMMARY | 2024-08-11 05:30 | XMS_ITS ---
Author Organization [facility] Address [address] [place] [address] Care Team Providers Care Aircraft Cleaner Name Role Phone Santos Blood MD Primary Care Provider Rosalie Cabrera [phone] Encounters Encounter Location Date Provider Diagnosis [facility] [address] [place] [address] 08/11/2024 Rosalie Carson Plan Of Treatment No Information Progress Notes * SHADYKaiserfionaReinaOB:1965 (60 yo M)Acc No.[id number]:08/11/2024 Progress Notes Patient: Devante BLUM Provider: Austyn Carson DPM :1965 A ge:59 Y S ex:Male Date:08/11/2024 Address:[address] [place], [place] [id number] Pcp:Santos Blood MD Subjective: * Chief Complaints: [...] Date: 10/12/2023 Generated for Brandoni ng/Faericag/eTransmitting on: 07:27 PM EDT
--- OUTSIDE RECORDS SUMMARY | 2025-01-25 12:00 | XMS_ITS ---
Author Organization [facility] Address [address] [place] [address] Care Team Providers Care Human Resources Services Specialist Name Role Phone Santos Blood MD Primary Care Provider Rosalie Cabrera [phone] Encounters Encounter Location Date Provider Diagnosis [address] [address] 01/25/2025 Rosalie Carson Plan Of Treatment No Information Progress Notes * Amee CARUSOOB:1965 (60 yo M)Acc No.[id number]:01/25/2025 Progress Note Patient: Devante BLUM Provider: Austyn Carson DPM :1965 A ge:59 Y S ex:Male Date:01/25/2025 Address:[address] [place], [place] [id number] Pcp:Santos Blood MD Subjective: * Chief Complaints: [...] Carson DPM Date: 0 01/25/2025 Generated for Brandoni klever/Faxiomara/eTransmitting on: 1 07:26 PM EDT
--- OUTSIDE RECORDS SUMMARY | 2025-06-14 19:27 | XMS_ITS | Encounter Summary ---
Author Organization [facility] Address [address] [address] Phone Care Team Providers Care Insurance Plan Specialist Name Role Phone Santos Blood MD Primary Care Provider [phone] Santos Blood MD Unavailable Reason for Visit * Reason Comments Medication Refill Encounter Details Date Type Department Care Team (Late st Contact Info) Description 06/10/2025 Refill [facility] Orthopedics & Sports Medicine [address] [place] [id number] Mago Bourne PA-C [address] [place] [address] Orthopedics & Sports Medicine, [place] [address] [email or web address] Medication Refill Social History Tobacco Use Types Packs/Day Years Used Date Smoking Tobacco: Never Smokeless Tobacco: Never Alcohol Use Standard Drinks/Week Comments Not Currently 0 (1 standard drink = 0.6 oz pur e alcohol) Child or Family Care Answer Date Record ed Do you have problems with on e of the following making it difficult for you to work, study, or receive health care? No 11/20/2024 Education Answer Date Recorded Are you interested in help w ith more adult education (for example, completing high school, GED, job training, learning the [place] language, technical skills, or developing parenting skills)? No 11/20/2024 Are you concerned about learning? Not on file 11/20/2024 No 11/20/2024 Yes 11/20/2024 Food Answer Date Recorded Within the past 6 months we worried whether our food would run out before we got money to buy more. Never True 11/20/2024 Within the past 6 months the food we bought just didn't last and we didn't have enough money to get more. Never True Residential Stability Answer Date Recor ded What is your housing situation today? I have isidoro sing 11/20/2024 How many times have you move d in the past 12 months? Zero (I did not move) 11/20/2024 Paying for Meds Answer Date Recorded Do you have trouble paying for medicines? No 11/20/2024 Paying Utility Bills Answer Date Record ed Do you have trouble paying your heating or elect ricity bill? No 11/20/2024 Transportation Answer Date Recorded Has the lack of transportati on kept you from medical appointments or from getting medications? No 11/20/2024 Unemployment Answer Date Recorded Are you currently unemployed or working on a part-time or temporary basis, and looking for work? No 08/19/2021 Digital Access Answer Date Recorded No 11/20/2024 Yes 11/20/2024 Do you have reliable internet access at home? Ye s 11/20/2024 Do you have a device (e.g., phone, tablet, computer) with a working camera? Yes 11/20/2024 Intimate Partner Violence Answer Date R ecorded Denied Basic Needs Not on file 11/20/2024 In the past 12 months have y ou been in a relationship with a person who hurts, threatens, or tries to control you? No 11/20/2024 Worried food would run out Not on file 11/20 In the past 12 months have y ou been in a relationship with a person who hurts, threatens, or tries to control you? No 11/20/2024 Sex and Gender Information Value Date Recorded Sex Assigned at Male 03/12/2024 9:37 AM EDT Legal Sex Male 3:05 PM EDT Gender Identity Male 03/12/2024 9:37 AM EDT Sexual Orientation Straight 03/12/2024 9: 37 AM EDT documented as of this encounter Plan of Treatment Upcoming Encounters Date Type Department Care Team (Late st Contact Info) Description 06/15/2025 2:40 PM EDT Office Visit [facility] Orthopedics & Sports Medicine [address] [place] [address] Mago Bourne PA-C [address] [place] [address] Orthopedics & Sports Medicine, [facility] [place] [address] 09/12/2025 4:00 PM EST Office Visit [facility] General Surgical Care [address] [place] [address] Shannan Asencio, ANESTHESIOLOGIST/PHYSICIAN [address] [facility], 2nd [place] [address] 11/30/2025 2:00 PM EDT Office Visit [facility] Internal Medicine [address] [place], [place] [phone] Santos Blood MD [address] [place] [address] documented as of this encounter Visit Diagnoses Diagnosis Right knee pain, unspecified chronicity Primary osteoarthritis of right knee- Primary documented in this encounter Additional Health Concerns Assessment Noted Time PHQ-2 Depression Total Score: 0 11/21/19 25 7:37 PM EDT documented as of this encounter Care Teams Insurance Plan Specialist Relationship Specialty Start Date End Date Santos Blood MD [address] [place] [address] PCP - General Internal Medicine 06/02/21 Santos Blood MD [address] [place], [place] [phone] Insurance Assigned Provider 01/08/24 documented as of this encounter Additional Source Comments The information contained in this document represents components of the legal health record. It is not the complete legal health record.[facility]
--- OUTSIDE RECORDS SUMMARY | 2025-06-14 19:27 | XMS_ITS | Clinical Summary ---
Author Organization [facility] Address [address] [address] Phone Care Team Providers Care Direct Support Professional Name Role Phone Santos Blood MD Primary Care Provider [phone] Santos Blood MD Unavailable Allergies No known active allergies Medications ibuprofen (ADVIL,MOTRIN) 800 MG tablet Take 800 mg by mouth every 8 (eight) hours as needed. 11/13/2024 Active celecoxib (CELEBREX) 200 MG capsuleIndicatio ns:Right knee pain, unspecified chronicity Take 1 capsule (200 mg total) by mouth daily. Take with food. 30 capsule 05/14/2025 Active Active Problems Problem Noted Date Diagnosed Date Class 2 severe obesity with body mass index (BMI) of 35 to 39.9 with serious comorbidity 03/24/2024 Assessment & Plan (11/27/2024 6:51 PM EDT): See HPI, counseled patient on GLP-1 agonists, recommending a diet plan that would be done before GLP-1 agonist, also obtain sleep study prior. Transaminasemia 03/24/2024 Toe pain, chronic, right 03/24/2024 Muscle cramp 12/12/2021 Assessment & Plan (12/24/2021 10:25 AM EDT): I have advised him to magnesium oxide at night as a natural muscle relaxer 400 mg p.o. nightly. We can write a prescription if need be. Copious amounts of water to drink, patient should not be dehydrated as that can cause muscle cramping as well. We will see what the CPK is now and compare it with the previous one and await the result from the myositis panel. With all these results we can contemplate getting muscle biopsy, EMG and neuro consult. Assessment & Plan (12/12/2021 9:11 AM EDT): The muscle cramping is unclear where it is coming from. I would like the patient to hold the allopurinol, I would like the patient to take some quinine sulfate at night in the form of tonic water but be mindful about keeping it diabetic friendly since he is prediabetic. 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 Obtain CPK and a myositis antibody panel. Then based on the labs we will see if patient needs to set up with a neurologist. Prediabetes 12/12/2021 Assessment & Plan (11/27/2024 6:51 PM EDT): With the labs that he will do in [facility], will also obtain uric acid level, hemoglobin A1c regarding his metabolic syndrome. Assessment & Plan (12/12/2021 9:12 AM EDT): Discussed with the patient that hemoglobin A1c of 6.1%, we should definitely check that again in 6 months. Counseled patient on a diabetic diet. Routine general medical exam ination at a [facility] care facility 08/19/2021 Assessment & Plan (11/27/2024 6:52 PM EDT): Exam remarkable for obesity otherwise no other notable pathology, patient will come back yearly but sooner if he intends to have a GLP-1 agonist prescribed for weight loss/diabetes. Will check and hemoglobin A1c, if he has a diagnosis of RAMIRO he would then qualify for Zepbound. Assessment & Plan (09/24/2023 1:40 PM EST): He is having some polyarthralgias so we will obtain a CRP and a uric acid level. I did not notice any swollen joints red joints hot joints on the exam. Also no blanching noted Raynaud's phenomenon. He does have a little bit of edema but that is the venous stasis related and also in the setting of moderate obesity. I counseled him on the etiology of the. This goes inks-bp-myym with the prediabetes so obtain hemoglobin A1c lipid profile Chem-12 assessing metabolic syndrome. I will see him back in 6 months to follow-up on the metabolic syndrome. Will act upon the labs sooner, tetanus shot will be administered today, he will go back to his records to see when his last colonoscopy with Dr. lCeaning or Dr. Kelley was. That was over in [place]. Assessment & Plan (08/19/2021 3:45 PM EST): This patient comes in to establish care with me today. He has had some increase in weight recently but in the end we did not discuss that today but rather took some history of recent surgeries and problem list. We will obtain labs prior to his physical which will be next May. We will replenish the allopurinol prescription as it is necessary. Hyperuricemia 08/19/2021 Assessment & Plan (11/27/2024 6:51 PM EDT): Will continue to monitor yearly, no recent gout attacks. Assessment & Plan (12/12/2021 9:13 AM EDT): When the patient can come off of the allopurinol to make sure that that is not what is causing the muscle aches. Assessment & Plan (08/19/2021 3:46 PM EST): Gout appears to be well controlled with the allopurinol 300 mg, check allopurinol level with physical exam labs in May of next year. Encounters Date Type Department Care Team Description 06/10/2025 Refill [facility] Orthopedics & Sports Medicine [address] [place] [address] Mago Bourne PA-C Medication Refill 05/30/2025 10:30 AM EDT Office Visit [facility] Medicine [address] [place] [address] Michael Landeros MD Primary osteoarthritis of both knees (Primary Dx) 05/14/2025 3:40 PM EDT Office Visit [facility] [address] [address] Mago Bourne PA-C Right knee pain, unspecified chronicity (Primary Dx); Primary osteoarthritis of right knee 05/14/2025 3:20 PM EDT - 05/14/2025 11:59 PM EDT Hospital Encounter [address] [address] Mago Bourne PA-C Discharge Disposition: Home or Self Care 05/14/2025 Telephone [facility] Orthoped[facility] Sports [address] [address] Olivia Malik RN Durolane - Right - Lori, PA 05/11/2025 Telephone [facility] [address] [place] [address] Chantel Perez Triage (Green + knee pain ) from Last 3 Months Immunizations Immunization Administration Dates Next Due INFLUENZA, SPLIT VIRUS, TRIVALENT W/ PRESERVATIV E IM 05/29/2017 Influenza Quadrivalent MDCK Preservative Free IM 05/21/2022,05/13/2019 Influenza Quadrivalent Preservative Free IM 12/2020,07/06/2018 Influenza Quadrivalent w/ Preservative IM 2018,06/02/2016 Td (adult) 5 Lf Tetanus Toxoid, PF, Adsorbed Zoster recombinant 11/23/2020,07/08/2020 Family History Relation Status Comments Father Mother Alive Social History Tobacco Use Types Packs/Day Years Used Date Smoking Tobacco: Never Smokeless Tobacco: Never Tobacco Cessation:Counseling Given: Not Answered Alcohol Use Standard Drinks/Week Comments Not Currently [...] high school, GED, job training, learning the [place] language, technical skills, or developing parenting skills)? [...] Orientation Straight 03/12/2024 9: 37 AM EDT Last Filed Vital Signs Vital Sign Reading Time Taken Comments Blood Pressure 124/76 11/27/2024 4:15 PM EDT Pulse 95 11/27/2024 4:15 PM EDT Temperature 36.4 C (97.6 F) 11/27/2024 4:15 PM EDT Respiratory Rate 16 11/27/2024 4:15 PM EDT Oxygen Saturation 97% 11/27/2024 4:15 PM EDT Inhaled Oxygen Concentration - - Weight 114.7 kg (252 lb 12.8 oz) 11/27/2024 4:15 PM EDT Height 172.5 cm (5' 7.91 ) 11/27/2024 4:15 PM ED T Body Mass Index 38.54 11/27/2024 4:15 PM EDT Plan of Treatment Upcoming Encounters Date Type Department Care Team (Late st Contact Info) Description 06/15/2025 2:40 PM EDT Office Visit [facility] Medicine [address] [place] [address] Mago Bourne PA-C [address] [place] [address] [facility] [place] [address] 09/12/2025 4:00 PM EST Office Visit [facility] General Surgical Care [address] [place] [address] Shannan Asencio, ARI [address] [facility], 2nd [place] [address] 11/30/2025 2:00 PM EDT Office Visit [facility] Internal Medicine [address] [place] [address] Santos Blood MD [address] [place] [address] [email or web address] Health Maintenance Due Date Last Done Comments COLOGUARD 2008 FIT TEST 2008 FOBT 2008 SIGMOIDOSCOPY 2008 VIRTUAL COLONOSCOPY 2008 PNEUMOCOCCAL VACCINES (50+ years) (1 of 1 - PCV) 2013 INFLUENZA VACCINE (#1) 2025 2, 05/04/2021, 06/08/2019, Additional history exists COVID-19 VACCINE ( - season) 2025 01/17/2021, 12/27/2020 DEPRESSION SCREENING 11/20/2025 11/20/2024 SCREENING FOR DIABETES 03/24/2027 03/24/2024, 2023 LIPID PANEL 09/24/2028 09/24/2023, 12/11/2021 COLONOSCOPY 05/23/2031 05/23/2021 COLORECTAL CANCER SCREENING 05/23/2031 Adult Td,Tdap Booster 09/24/2033 09/24/2023 RSV VACCINE (1 - 1-dose 75+ series) 2038 ZOSTER VACCINES Completed 11/23/2020, 07/08/2020 HEPATITIS C SCREENING Completed 09/24/2023 HIV ONE-TIME SCREENING (18-65 YEARS) Completed 09/24/2023 SMOKING STATUS SCREENING (Once After 26 Yrs) Completed 05/30/2025 HEPATITIS A VACCINES Aged Out No long er eligible based on patient's age to complete this topic HIB VACCINES Aged Out No longer eligi ble based on patient's age to complete this topic MENINGOCOCCAL VACCINES (ACWY) Aged Out No longer eligible based on patient's age to complete this topic MENINGOCOCCAL VACCINES (B) Aged Out N o longer eligible based on patient's age to complete this topic Medical Devices Not on file Procedures Procedure Name Priority Date/Time Associated Diagnosis Comments XR KNEE 4 OR MORE VIEWS (RIGHT) Routine 05/14/2025 3:27 PM EDT Right knee pain, unspecified chronicity LIPID PANEL Routine 09/24/2023 1:41 PM EST Routine general medical examination at a health care facility HEPATITIS C ANTIBODY, QUALITATIVE Routine 09/24/2023 1:41 PM EST Need for hepatitis C screening test HM COLONOSCOPY FOR RESULT ENTRY ONLY Routine 05/23/2021 from Last 3 Months or Most Recently Relevant to Health Maintenance Results * XR KNEE 4 OR MORE VIEWS (RIGHT) (05/14/2025 3:27 PM EDT) Narrative SYSTEMGENERATED, DOCUMENTATION - 05/14/2025 3:27 PM EDT This image report has been auto-finalized and has not been read by a Radiologist. Interpretation has been included in the provider encounter note for this date of service. us Mago HOWARD-Janusz IMG XR LOWER EXTREMITY F inal Result * Hepatitis C antibody, qualitative (09/24/2023 1:41 PM EST) HCV NON-REACTIV E NON-REACTI VE [facility] Blood 09/24/2023 1:41 PM EST 09/24/2023 1:45 PM EST Santos Blood MD LAB BLOOD ORDERABLES Final Resul t [address] [address] * (ABNORMAL) Lipid panel (09/24/2023 1:41 PM EST) HDL 55 mg/dL [facility] Comment: Interpretation <40 mg/dL: Low HDL cholesterol (major risk factor for CHD) Greater than or equal to 60 mg/dL: High HDL cholesterol ( negative risk factor for CHD) HDL - cholesterol is affected by a number of factors, e.g. smoking, excerise, hormones, sex and age. CHOLESTEROL 145 0 - 240 mg/dL [facility] TRIGLYCERIDES 91 30 - 160 mg/dL [facility] LDL 72 50 - 129 mg/dL [facility] Comment: LDL levels in terms of risk for coronary heart disease: <100 mg/dL: Optimal 100-129 mg/dL: Near or above optimal 130-159 mg/dL: Borderline high 160-189 mg/dL: High >190 mg/dL: Very High CARDIAC RISK RATIO 2.6(L) 3.4 - 5.0 C [facility] Blood 09/24/2023 1:41 PM EST 09/24/2023 1:45 PM EST us Santos Blood MD LAB BLOOD ORDERABLES Final Resul t [facility] [address] [place], [place] [id number] * COLONOSCOPY FOR RESULT ENTRY ONLY (05/23/2021) HM Colonoscopy 10 yr recall us Historical Provider HEALTH MAINTENANCE Final Result from Last 3 Months or Most Recently Relevant to Health Maintenance Insurance OUT [facility] PPO BLUE CROSS OUT OF STATE PPO BLUE CROSS OUT OF STATE PPO BLUE CROSS OUT OF [place] [address] [place] [address] OUT OF STATE PPO Care Teams Direct Support Professional Relationship Specialty Start Date End Date Santos Blood MD [address] [place] [address] PCP - General Internal Medicine 06/02/21 Santos Blood MD [address] [place] [address] [email or web address] Insurance Assigned Provider 01/08/24 Additional Source Comments The information contained in this document represents components of the legal health record. It is not the complete legal health record.[facility]
--- OUTSIDE RECORDS SUMMARY | 2025-06-14 19:27 | XMS_ITS | Patient Health Record ---
[facility] Gabino Yepezley Address [address] [place] [address] Care Team Providers Care Marketing Community Liaison Name Role Phone Santos Blood MD Primary Care Provider Rosalie Cabrera Unavailable [phone] Allergies No Known Allergies Reason For Referral No Information Medications Medication SIG (Take, Route, Frequency, Duration) Notes Start Date End Date Status ASO Ankle/Foot Stablizing AFO As directed Wear Daily; Duration: as needed 11/13/2024 Active Ibuprofen 800 MG 1 tablet with food o r milk as needed Orally Three times a day; Duration: 30 days 11/13/2024 Active Physical Therapy . . . 2-3x/week; Durat ion: 3-4 weeks 11/13/2024 Active Social History Tobacco Use: [...] 11/13/2024 Encounters Encounter [facility] Date [facility] [address] 11/13/2024 Rosalie Carson Pain in right foot M79.671 ; Posterior tibial tendinitis, right leg M76.821 ; Hypertrophy of bone, right ankle and foot M89.371 and Flat foot [pes planus] (acquired), right foot M21.[address] [facility] [address] 07/26/2024 Rosalie Carson [facility] [address] [address] 09/20/2024 Rosalie Carson [facility] [address] 10/23/2024 Rosalie Carson [facility] [address] 01/24/2025 Rosalie Carson Assessments Encounter Date Diagnosis (ICD [...] Insured Coverage Start Date Coverage End Date [facility] All Others [address] [place] [address] [id number] Devante Caruso Self - patient is the insured Medical (General) History Medical History History ICD Code Arthritis Back,Hip,and Knee pain Gall bladder problems Gout PVD GERD sinusitis Chicken pox Surgical History Surgery Date(Month/Year) Gall bladder removal 2003 hernia appendectomy carpal tunnel surgery tendon removal
--- OUTSIDE RECORDS SUMMARY | 2025-06-14 19:27 | XMS_ITS | Patient Health Record ---
Author Organization [facility] Address [address] [place] [address] Care Team Providers Care Power Generation Turbine Room Operator Name Role Phone Michael Kelley [phone] Reason For Referral No Information Plan Of Treatment No Information
== END ==
LOC: HO.SL 15:44
PROVIDERS: PCP Internal Medicine; Visit Provider Physician Assistant Medical
DX: G47.19 Other hypersomnia (principal)
CPT/HCPCS: 95806

== ENCOUNTER → 2025-06-14 15:53 | Outpatient (BNV) | payer BC, SELFPAY | PROVIDERS: PCP Internal Medicine; Visit Provider Psychiatry & Neurology Neurology | DX: G47.33 Obstructive sleep apnea (adult) (pediatric) (principal) | CPT/HCPCS: 95806 ==

== ENCOUNTER 2025-07-19 15:09 | Outpatient (AMB) | payer BC, SELFPAY ==
--- OUTSIDE RECORDS SUMMARY | 2024-08-11 04:30 | XMS_ITS ---
Author Organization [facility] Address [address] [place] [address] Care Team Providers Care Project Asst Name Role Phone Santos Blood MD Primary Care Provider Rosalie Cabrera [phone] Encounters Encounter Location Date Provider Diagnosis [facility] [address] [place] [address] 08/11/2024 Rosalie Carson Plan Of Treatment No Information Progress Notes * SHADYKaiserfionaReinaOB:1965 (60 yo M)Acc No.[id number]:08/11/2024 Progress Notes Patient: Devante BLUM Provider: Austyn Carson DPM :1965 A ge:59 Y S ex:Male Date:08/11/2024 Address:[address] [place], [place] [id number] Pcp:Santos Blood MD Subjective: * Chief Complaints: * * Medical History: Objective: * Vitals: Assessment: Plan: * Treatment: * Images: * The named appointment provid er may or may not be the originator of this progress note, and it is not deemed complete until electronically signed by the appointment provider. Sign off status: Pending * Provider: Austyn Carson DPM Date: 10/12/2023 Generated for Brandoni ng/Faericag/eTransmitting on: 09/18/2024 08:28 PM EST
--- OUTSIDE RECORDS SUMMARY | 2025-01-25 11:00 | XMS_ITS ---
Author Organization [facility] Address [address] [place] [address] Care Team Providers Care Model Artists' Name Role Phone Santos Blood MD Primary Care Provider Rosalie Cabrera [phone] Encounters Encounter Location Date Provider Diagnosis [address] [address] 01/25/2025 Rosalie Carson Plan Of Treatment No Information Progress Notes * Amee CARUSOOB:1965 (60 yo M)Acc No.[id number]:01/25/2025 Progress Note Patient: Devante BLUM Provider: Austyn Carson DPM :1965 A ge:59 Y S ex:Male Date:01/25/2025 Address:[address] [place], [place] [address] Pcp:Santos Blood MD Subjective: * Chief Complaints: * * Medical History: Objective: * Vitals: Assessment: Plan: * Treatment: * Images: * The named appointment provid er may or may not be the originator of this progress note, and it is not deemed complete until electronically signed by the appointment provider. Sign off status: Pending * Provider: Austyn Carson DPM Date: 0 01/25/2025 Generated for Joshua ernst/Ignacia/eTransmitting on: 09/18/2024 08:28 PM EST
[2025-07-19 15:29] VITALS: BP 128/88; PULSE 102; O2SAT 97; BMI 36.6
--- NOTE | 2025-07-19 15:29 | MHC.OFFVIS ---
Vital Signs 07/19/25 15:29 Height 5 ft 10 in Weight 255 lb BMI 36.6 BP 128/88 Blood Pressure Location Rt brachial Position Sitting Pulse 102 H Pulse Source Pulse Oximeter Pulse Oximetry (%) 97 Oxygen Delivery Method Room Air Intake Visit Reasons: follow up Intake Note: Patient presents follow up RAMIRO. No Labs, HST in chart(AHI-14, RTINITY-73%. APAP5-20). Accompanied by: Self / Same As Patient Allergies hazelnut Allergy (Mild, Verified 07/19/25 15:37) THROAT ITCHING HPI Comments Details: 60 year old male referred to us for sleep evaluation by his pcp Dr. Santos Blood. HST c/w moderate ramiro AHI is 14 and oxygen nadirs to 73%, will start APAP 5-20 and f/u with compliance. He has chronic fatigue for years now, falls asleep in front of the tv after work daily and has a hard time staying asleep at night. He goes to bed at 10pm and gets up at 5am. His c/o his loud snoring and witnessed pauses in breathing. He tried the nose strips but it did not help him. He gets morning headaches and congestion due to sinus, center of the forehead, he tried using flonase and nasal saline, with little improvement. He had a sleep study more than 5 years ago and never followed up. He has jerking movements bilaterally in legs r>l, at night for 3 years now and has the constant urge to move his legs at night to get comfortable, it wakes him occasionally. He has a h/o Gout in l toe, continues to have hylauronic- gel injections now not working as well as steroids did in the past. Slow to ambulate due to pain in knees. Diet, is good. Memory is stable. Mood is average. He is motivated to lose weight on a diet and awaiting zepbound due to limitations in physical activities. Denies acid reflux, gait balance difficulties, denies flailing, thrashing behaviors, parasomnias. [facility] Medical History Iron deficiency anemia Mild asthma Hypercholesterolemia Gout Surgical History History of carpal tunnel surgery of right wrist H/O esophagogastroduodenoscopy History of right inguinal hernia repair History of appendectomy History of cholecystectomy History of carpal tunnel surgery Family History Mother Environmental allergies Hypertension Arthritis Father No problems noted. 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 Cognitive needs: No Hearing needs: No Vision needs: No Physical Exam Vital Signs: Last Vital Signs Pulse 102 H 07/19/25 15:29 BP 128/88 07/19/25 15:29 Pulse Ox 97 07/19/25 15:29 Oxygen Delivery Method Room Air 07/19/25 15:29 BMI result Body Mass Index 36.6 Const General: cooperative, comfortable and no acute distress Nutritional Appearance: average body habitus Orientation/consciousness: patient oriented x3 HEENT Face and sinus: Yes normal facial exam and Yes face symmetric Teeth and gingiva: other (mallampti 4) Eyes Pupils: Equal, round and reactive pupils present Resp Effort & Inspection: normal respiratory effort and able to speak in complete sentences Neuro Other: abnormal movements at night Jerking of bilateral legs. General: patient oriented x3 and moves all extremities Cranial nerves: Yes Equal, round and reactive pupils present, Yes Normal accommodation reflex present, Yes Normal facial strength present, Yes Midline tongue present, Yes Ability to bilaterally rotate head present and Yes Ability to bilaterally elevate shoulders present Cognition (Neuro): normal cognition Gait exam (Neuro): Normal gait present Motor exam (neuro): 5/5 motor strength present throughout and Normal motor muscle tone present throughout Coordination: [id number] test normal Psych Appearance: grossly normal Speech and movement: Normal speech and movement present Thought process: Normal thought process present Thought content: Normal thought content present Results Reviewed Results Reviewed: HST c/w moderate ramiro AHI is 14 and oxygen nadirs to 73%, will start APAP 5-20 and f/u with compliance. Start cpap [id number] and Ventress category nasal pillow mask, P30i, Assessment & Plan Assessment & Plan (1) Excessive daytime sleepiness: Code(s): G47.19 - Other hypersomnia Category: Medical (2) Twitching: Code(s): R25.3 - Fasciculation Category: Medical Plan RAMIRO mild start cpap [id number] and monitor for compliance, with freedom category nasal pillow. Labs to reviewed with pt. F/u in 3 months for compliance. Patient Instructions: Sleep Hygiene provided: set a scheduled bedtime and wake time to help regulate the circadian rhythm and balance the release of pituitary hormones. Sleep in a dark room, temperatures below 68 degrees, and no devices n bed. Limit caffeinated products 6 hours prior to bed, and limit fluids 2-4 hours prior to bed. Gentle night yoga, diffusing essential oils, and playing soft music can be relaxing. Coding Level of Care Code Est Pt Level 4 (02088) Diagnoses Excessive daytime sleepiness G47.19 Twitching R25.3
--- OUTSIDE RECORDS SUMMARY | 2025-07-19 20:29 | XMS_ITS | Patient Health Record ---
Author Organization [facility] Address [address] [place] [address] Care Team Providers Care Customer Response Representative Name Role Phone Michael Kelley [phone] Reason For Referral No Information Plan Of Treatment No Information
--- OUTSIDE RECORDS SUMMARY | 2025-07-19 20:29 | XMS_ITS | Encounter Summary ---
Author Organization [facility] Address [address] [address] Phone Care Team Providers Care Worship Director Name Role Phone Santos Blood MD Primary Care Provider [phone] Santos Blood MD Unavailable Reason for Visit * Reason Comments Medication Refill Encounter Details Date Type Department Care Team (Late st Contact Info) Description 06/10/2025 Refill [facility] Orthopedics & Sports Medicine [address] [place] [address] Mago Bourne PA-C [address] [place] [address] Orthopedics & Sports Medicine, [place] [address] [email or web address] Medication Refill Social History Tobacco Use Types [...] high school, GED, job training, learning the [place] language, technical skills, or developing parenting skills)? [...] Care Team (Late st Contact Info) Description 09/12/2025 4:00 PM EST Office Visit [facility] General Surgical Care [address] [place] [address] Shannan Asencio, LIME BOILER [address] [facility], 2nd [place] [address] 12/20/2025 11:00 AM EDT Office Visit [facility] Internal Medicine [address] [place] [address] Santos Blood MD [address] [place], [place] [id number] [email or web address] documented as of this encounter Visit Diagnoses Diagnosis Right knee pain, unspecified chronicity documented in this encounter Additional Health Concerns Assessment Noted Time PHQ-2 Depression Total Score: 0 11/21/19 25 7:37 PM EDT documented as of this encounter Care Teams Worship Director Relationship Specialty Start Date End Date Santos Blood MD [address] [place] [address] PCP - General Internal Medicine 06/02/21 Santos Blood MD [address] [place] [address] Insurance Assigned Provider 01/08/24 documented as of this encounter Additional Source Comments The information contained in this document represents components of the legal health record. It is not the complete legal health record.[facility]
--- OUTSIDE RECORDS SUMMARY | 2025-07-19 20:29 | XMS_ITS | Patient Health Record ---
Author [facility] Gab[facility] Yepez[facility] Address [address] [facility] [place] [address] Care Team Providers Care Equipment Services Associate Name Role Phone Santos Blood MD Primary Care Provider Rosalie Cabrera Unavailable [phone] Allergies No Known Allergies Reason For Referral [...] 11/13/2024 Encounters Encounter Location Date [facility] [address] 11/13/2024 Rosalie Carson Pain in right foot M79.671 ; Posterior tibial tendinitis, right leg M76.821 ; Hypertrophy of bone, right ankle and foot M89.371 and Flat foot [pes planus] (acquired), right foot M21.[address] [facility] [address] 07/26/2024 Rosalie Carson [facility] [address] [address] 09/20/2024 Rosalie Carson [facility] [address] 10/23/2024 Rosalie Carson [facility] [address] 01/24/2025 Rosalie Carson Assessments Encounter Date Diagnosis [...] Insured Coverage Start Date Coverage End Date [facility] All Others [address] [place] [address] [phone] [id number] Devante Caruso Self - patient is the insured Medical (General) History Medical History History ICD Code Arthritis Back,Hip,and Knee pain Gall bladder problems Gout PVD GERD sinusitis Chicken pox Surgical History Surgery Date(Month/Year) Gall bladder removal 2003 hernia appendectomy carpal tunnel surgery tendon removal
--- OUTSIDE RECORDS SUMMARY | 2025-07-19 20:29 | XMS_ITS | Clinical Summary ---
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 Obtain CPK and a myositis antibody panel. Then based on the labs we will see if patient needs to set up with a neurologist. Prediabetes 12/12/2021 Assessment & Plan (11/27/2024 6:51 PM EDT): With the labs that he will do in [facility], will also obtain uric acid level, hemoglobin A1c regarding his metabolic syndrome. Assessment & Plan (12/12/2021 9:12 AM EDT): Discussed with the patient that hemoglobin A1c of 6.1%, we should definitely check that again in 6 months. Counseled patient on a diabetic diet. Routine general medical exam ination at a [facility] care facility 08/19/2021 Assessment & Plan (11/27/2024 [...] on the etiology of the. This goes [id number] with the prediabetes so obtain hemoglobin A1c lipid profile Chem-12 assessing metabolic syndrome. I will see him back in 6 months to follow-up on the metabolic syndrome. Will act upon the labs sooner, tetanus shot will be administered today, he will go back to his records to see when his last colonoscopy with Dr. Cleaning or Dr. Kelley was. That was over in [place]. Assessment & Plan (08/19/2021 3:45 PM EST): [...] Encounters Date Type Department Care Team Description 06/15/2025 2:40 PM EDT Office Visit [facility] [address] [place] [id number] Mago Bourne PA-C Primary osteoarthritis of right knee (Primary Dx) 06/10/2025 Refill [facility] [address] [place] [id number] Mago Bourne PA-C Medication Refill 05/30/2025 10:30 AM EDT Office Visit [facility] [address] [address] Michael Landeros MD Primary osteoarthritis of both knees (Primary Dx) 05/14/2025 3:40 PM EDT Office Visit [facility] [address] [place] [phone] Mago Bourne PA-C Right knee pain, unspecified chronicity (Primary Dx); Primary osteoarthritis of right knee 05/14/2025 3:20 PM EDT - 05/14/2025 11:59 PM EDT Hospital Encounter [address] [address] Mago Bourne PA-C Discharge Disposition: Home or Self Care 05/14/2025 Telephone [facility] [address] [address] Olivia Malik RN Durolane - Right - Lori, PA 05/11/[address] [address] Chantel Perez Triage (Green + knee pain [...] high school, GED, job training, learning the Citizen [place] language, technical skills, or developing parenting skills)? [...] Description 09/12/2025 4:00 PM EST Office Visit [facility] General Surgical Care [address] [place] [address] Shannan Asencio, ARI [address] [facility], 2nd [place] [address] 12/20/2025 11:00 AM EDT Office Visit [facility] Internal Medicine [address] [place] [address] Santos Blood MD [address] [place] [address] Health Maintenance Due Date Last Done Comments COLOGUARD 2008 FIT TEST 2008 FOBT 2008 SIGMOIDOSCOPY 2008 VIRTUAL COLONOSCOPY 2008 PNEUMOCOCCAL VACCINES (50+ years) (1 of 1 - PCV) 2013 COVID-19 VACCINE (3 - season) 2025 01/17/2021, 12/27/2020 DEPRESSION SCREENING [...] SCREENING (Once After 26 Yrs) Completed 05/30/2025 INFLUENZA VACCINE Completed 06/14/2025, , 05/04/2021, Additional history exists HEPATITIS A VACCINES Aged Out No long [...] for this date of service. us Mago Bourne PA-C IMG XR LOWER EXTREMITY F inal Result * Hepatitis C antibody, qualitative (09/24/2023 1:41 PM EST) HCV NON-REACTIV E NON-REACTI VE [facility] Blood 09/24/2023 1:41 PM EST 09/24/2023 1:45 PM EST us Santos Blood MD LAB BLOOD BKR ORDERABLES Final R esult [address] [address] * (ABNORMAL) Lipid panel (09/24/2023 1:41 PM EST) HDL 55 mg/dL [facility] Comment: Interpretation <40 mg/dL: Low HDL cholesterol (major risk factor for CHD) Greater than or equal to 60 mg/dL: High HDL cholesterol ( negative risk factor for CHD) HDL - cholesterol is affected by a number of factors, e.g. smoking, excerise, hormones, sex and age. CHOLESTEROL 145 0 - 240 mg/dL [facility] TRIGLYCERIDES 91 30 - 160 mg/dL [facility] LDL 72 50 - 129 mg/dL [facility] Comment: LDL levels in terms of risk for coronary heart disease: <100 mg/dL: Optimal 100-129 mg/dL: Near or above optimal 130-159 mg/dL: Borderline high 160-189 mg/dL: High >190 mg/dL: Very High CARDIAC RISK RATIO 2.6(L) 3.4 - 5.0 C [facility] Blood 09/24/2023 1:41 PM EST 09/24/2023 1:45 PM EST us Santos Blood MD LAB BLOOD BKR ORDERABLES Final R esult Performing Organization Address City/State/[facility] Co de Phone Number [address] [address] * COLONOSCOPY FOR RESULT ENTRY ONLY (05/23/2021) Colonoscopy 10 yr recall us Historical Provider HEALTH MAINTENANCE Final Result from Last 3 Months or Most Recently Relevant to Health Maintenance [place] [address] [address] [place] [address] OUT OF [facility] [place] [address] [place] [address] OUT OF [facility] OUT [place] [facility] [place] [address] [place] [address] OUT OF [facility] P[facility] [employer] OUT OF STATE PPO Care Teams Construction Administrative Assistant Relationship Specialty Start Date End Date Santos Blood MD [address] [place] [address] PCP - General Internal Medicine 06/02/21 Santos Blood MD [address] [place] [address] Insurance Assigned Provider 01/08/24 Additional Source Comments The information contained in this document represents components of the legal health record. It is not the complete legal health record.[facility]
== END 2025-07-19 15:59 | disposition home or self-care (01) ==
LOC: HO.HSMS 15:10
PROVIDERS: PCP Internal Medicine; Visit Provider Physician Assistant Medical
DX: G47.19 Other hypersomnia (principal); R25.3 Fasciculation
CPT/HCPCS: 99214